=== PATIENT | female | born 1965 | race Caucasian/White ===

== ENCOUNTER 2025-04-23 11:13 | Observation (INO) | payer BC, OTHER ==
[2025-04-23 11:22] VITALS: BMI 44.2
[2025-04-23] MEDS ORDERED: MECLIZINE HCL 25 MG TABLET (FP) ONE (11:46)
[2025-04-23] MEDS ORDERED: ONDANSETRON 4 MG/2 ML VIAL ONE (11:46)
[2025-04-23] MEDS ORDERED: ACETAMINOPHEN INJECTION 100 ML ONE (11:46)
[2025-04-23] MEDS: ACETAMINOPHEN 1000 MG/100 ML BAG IVPB ONE (11:52)
[2025-04-23 11:53] LABS: ABSOLUTE IMMATURE GRANULOCYTES 0.03 x10^3/uL (0.0-0.031); BASOPHILS # 0.04 x10^3/uL (0.01-0.08); EOSINOPHIL % 0.7 % (0.7-5.8); EOSINOPHILS # 0.05 x10^3/uL (0.04-0.36); HEMATOCRIT 39.6 % (34.1-44.9); HEMOGLOBIN 12.5 g/dL (11.2-15.7); MCHC 31.6 g/dl (32.2-35.5); MEAN PLT VOLUME 9.3 fl (9.4-12.3); MONOCYTE # 0.27 x10^3/uL (0.24-0.86); MONOCYTE % 3.9 % (4.7-12.5); PLATELET COUNT 231 x10^3/uL (182-369); RDW 14.5 % (12.3-16.6)
[2025-04-23] MEDS: ONDANSETRON 4 MG/2 ML VIAL IVPUSH ONE (11:53)
[2025-04-23] MEDS: MECLIZINE HCL 25 MG TABLET (FP) PO ONE (11:53)
[2025-04-23] MEDS: SODIUM CHLORIDE 1,000 ML IV STA (12:13)
[2025-04-23 12:17] LABS: POTASSIUM 3.7 mmol/L (3.5-5.1)
[2025-04-23 12:19] LABS: ALBUMIN 3.6 g/dl (3.4-5.0); BLOOD UREA NITROGEN 24.9 mg/dL (7-18); CALCIUM 10.2 mg/dL (8.5-10.1)
[2025-04-23] MEDS ORDERED: METOCLOPRAMIDE HCL INJECTION 10 MG/2 ML VIAL ONE (12:20)
[2025-04-23 12:23] LABS: CREATININE 0.8 mg/dL (0.55-1.3)
[2025-04-23] MEDS: METOCLOPRAMIDE HCL INJECTION 10 MG/2 ML VIAL IVPB ONE (12:23)
[2025-04-23 12:24] LABS: BILIRUBIN,TOTAL 0.5 mg/dL (0.2-1)
[2025-04-23 15:56] LABS: HCV DIAGNOSTIC IN-HOUSE W/RFLX NON-REACTIVE (NONREACTIVE)
[2025-04-23 15:57] LABS: HIV INTERPRETATION NEGATIVE (NEGATIVE)
[2025-04-23] MEDS: LACTATED RINGERS SOLUTION 1,000 ML IV STA (17:33)
[2025-04-23] MEDS ORDERED: ASPIRIN 325 MG ENTERIC COATED TABLET (FP) ONE (17:57)
[2025-04-23] MEDS: ASPIRIN 325 MG ENTERIC COATED TABLET (FP) PO SCH (17:59)
[2025-04-23] MEDS: LOSARTAN POTASSIUM 50 MG TABLET PO SCH (20:35)
[2025-04-23] MEDS: MECLIZINE HCL 25 MG TABLET (FP) PO PRN (21:11)
[2025-04-24 07:45] LABS: CHOLESTEROL 162 mg/dL (50-200)
[2025-04-24 07:46] LABS: LDL CHOLESTEROL (ONLY SJRH) 82 mg/dL (5-100)
[2025-04-24 07:48] LABS: HDL CHOLESTEROL 71 mg/dL (40-60)
[2025-04-24] MEDS ORDERED: ACETAMINOPHEN 325 MG TABLET (FP) PO PRN (08:20)
[2025-04-24] MEDS ORDERED: REGADENOSON 0.4 MG/5 ML PRE-FILLED SYRINGE IVPUSH ONE (09:44)
[2025-04-24] MEDS ORDERED: LOSARTAN POTASSIUM 50 MG TABLET PO SCH (10:00)
[2025-04-24] MEDS: REGADENOSON 0.4 MG/5 ML PRE-FILLED SYRINGE IVPUSH ONE (11:43)
[2025-04-24 14:52] VITALS: TEMP 97.7
[2025-04-24] MEDS: LOSARTAN POTASSIUM 50 MG TABLET PO SCH (15:22)
[2025-04-24 16:58] VITALS: BP 107/64; PULSE 76; RESP 17
== END 2025-04-24 17:53 | disposition home or self-care (01) ==
LOC: JER 11:13 → JERBED 14:11 → J4S 19:34
PROVIDERS: ADMIT Internal Medicine; ATTEND Internal Medicine
PROC: 3E033NZ Introduction of Analgesics, Hypnotics, Sedatives into Peripheral Vein, Percutaneous Approach (ICD-10-PCS; principal; 2025-04-23)
PROC: 3E0337Z Introduction of Electrolytic and Water Balance Substance into Peripheral Vein, Percutaneous Approach (ICD-10-PCS; 2025-04-23)
PROC: 3E033GC Introduction of Other Therapeutic Substance into Peripheral Vein, Percutaneous Approach (ICD-10-PCS; 2025-04-23)
DX: R42 Dizziness and giddiness (principal); E78.5 Hyperlipidemia, unspecified; R77.8 Other specified abnormalities of plasma proteins; E03.9 Hypothyroidism, unspecified; I87.2 Venous insufficiency (chronic) (peripheral); I10 Essential (primary) hypertension; E66.9 Obesity, unspecified; I24.89 Other forms of acute ischemic heart disease; I45.10 Unspecified right bundle-branch block
CPT/HCPCS: 36415; 70450-TC; 70551-TC; 78452-TC; 80053; 80061; 82550; 82962; 84484; 85025; 86803; 87389; 93005; 93010; 93017; 93306-TC; 99285-25; A9502; G0378; J2785